=== PATIENT | female | born 2000 | race African-American/Black ===

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

== ENCOUNTER 2022-06-06 06:45 | Emergency (ER) | payer MEDICAID, OTHER ==
[~2022-06-06] VITALS: Ht 170.2 cm; Wt 71.5 kg
[2022-06-06 07:27] VITALS: BP 113/77
[2022-06-06] MEDS ORDERED: methylPREDNISolone SOD SUCC 125 MG/2 ML VL IM ONE (08:00)
[2022-06-06] MEDS ORDERED: PRED20TA2 PO (08:12)
== END 2022-06-06 09:22 | disposition home or self-care (01) ==
LOC: ER 06:45
DX: T78.40XA Allergy, unspecified, initial encounter (principal); K21.9 Gastro-esophageal reflux disease without esophagitis; Z79.2 Long term (current) use of antibiotics; Z79.899 Other long term (current) drug therapy; Z88.0 Allergy status to penicillin; Z91.018 Allergy to other foods; Y92.89 Other specified places as the place of occurrence of the external cause
CPT/HCPCS: 96372; 99283; J2930

== ENCOUNTER 2023-08-23 21:33 | Emergency (ER) | payer BC, MEDICAID ==
[~2023-08-23] VITALS: Ht 170.2 cm; Wt 63.6 kg
[~2023-08-23 21:33] MED LIST changes: +PRED20TA2 PO
[2023-08-23 22:37] LABS: Basophils # (auto) 0 10 ^3/uL (0-0.2); Basophils % (auto) 0.5 % (0.0-2.0); Eosinophils # (auto) 0.1 10 ^3/uL (0-0.8); Eosinophils % (auto) 1.4 % (0.0-7.0); Hematocrit 43.4 % (36.0-46.0); Lymphocytes # (auto) 3.1 10 ^3/uL (0.4-5.4); Lymphocytes % (auto) 32.5 % (10.0-50.0); Mean Corpuscular Hemoglobin 25.8 pg (28.0-32.0); Mean Corpuscular Hgb Conc. 32.2 g/dL (32.0-36.0); Mean Corpuscular Volume 80.2 fL (80.0-100.0); Monocytes # (auto) 0.8 10 ^3/uL (0-1.3); Monocytes % (auto) 8.4 % (0.0-12.0); Neutrophils # (auto) 5.4 10 ^3/uL (1.6-8.6); Neutrophils % (auto) 57.2 % (37.0-80.0); Nucleated Red Blood Cells % 0.1 %; Red Cell Distribution Width 14.2 % (11.8-14.3); White Blood Cell 9.5 10^3/uL (4.4-10.8)
[2023-08-23 22:59] LABS: Alanine Aminotransferase 21 U/L (7-40); Alkaline Phosphatase 78 U/L (46-116); Anion Gap 17 (5-15); Aspartate Aminotransferase 21 U/L (13-40); BUN/Creatinine Ratio 7.8 (10.0-20.0); Blood Urea Nitrogen 6 mg/dL (9-23); Calcium 9.8 mg/dL (8.5-10.1); Carbon Dioxide 17 mmol/L (20-30); Chloride 102 mmol/L (98-107); Glucose 67 mg/dL (74-106); Potassium 3.9 mmol/L (3.5-5.1); Sodium 136 mmol/L (136-145)
[2023-08-23 23:00] LABS: Albumin 4.7 g/dL (3.2-4.8); Bilirubin, Total 1.1 mg/dL (0.2-1.0); Total Protein 8.1 g/dL (5.7-8.2)
[2023-08-23] MEDS ORDERED: SODIUM CHLORIDE 0.9% 1,000 ML IV ONE (23:45)
[2023-08-23] MEDS ORDERED: LORazepam 2MG/ML-1ML VIAL IV ONE (23:45)
[2023-08-24 04:52] LABS: Urine Bacteria MANY /hpf (None Seen); Urine Blood Negative /uL (Negative); Urine Clarity HAZY (Clear); Urine Color Yellow (Yellow); Urine Mucus MODERATE (None Seen); Urine Protein, UAD 1+ (Negative); Urine Specific Gravity 1.029 (1.001-1.035); Urine Urobilinogen Normal (Negative); Urine WBC 30 /hpf (0 - 5); Urine pH 5.5 (5.0-8.0)
[2023-08-24] MEDS ORDERED: cefTRIAXone 1GM/50ML D5W 50 ML IV ONE (05:00)
[2023-08-24 05:05] VITALS: BP 120/81; PULSE 91; RESP 18; TEMP 97.9; O2SAT 100
[2023-08-24] MEDS ORDERED: NITR-87 PO (05:21)
== END 2023-08-24 06:16 | disposition home or self-care (01) ==
LOC: ER 21:33
DX: R42 Dizziness and giddiness (principal); N39.0 Urinary tract infection, site not specified; Z88.0 Allergy status to penicillin
CPT/HCPCS: 36415; 70450; 80053; 81001; 84484; 85025; 93005; 96365; 99285; J0696; J7030